=== PATIENT | male | born 1945 | race Asian ===

== ENCOUNTER 2017-03-11 07:28 | Day surgery (SDC) | payer OTHER ==
[2017-03-10 09:39] LABS: PLATELET COUNT 345 K/uL (142-355)
== END 2017-03-11 11:05 | disposition home or self-care (01) ==
LOC: OR 07:28
PROVIDERS: Student in an Organized Health Care Education/Training Program
PROC: 0DJD8ZZ Inspection of Lower Intestinal Tract, Via Natural or Artificial Opening Endoscopic (ICD-10-PCS; principal; 2017-03-11)
DX: K57.30 Diverticulosis of large intestine without perforation or abscess without bleeding (principal); K64.0 First degree hemorrhoids; Z12.11 Encounter for screening for malignant neoplasm of colon
CPT/HCPCS: 36415; 80053; 85027; J2001; J2250; J2704; J3010; J3490

== ENCOUNTER 2017-03-24 06:22 | Day surgery (SDC) | payer OTHER | END 2017-03-24 08:17 | disposition home or self-care (01) | LOC: OR 06:22 | PROC: 08RJ3JZ Replacement of Right Lens with Synthetic Substitute, Percutaneous Approach (ICD-10-PCS; principal; 2017-03-24) | DX: H25.811 Combined forms of age-related cataract, right eye (principal) | CPT/HCPCS: 66984; J0171; V2632 ==

== ENCOUNTER 2019-08-02 13:02 | Emergency (ER) | payer OTHER ==
[~2019-08-02] VITALS: Ht 170.2 cm; Wt 93.0 kg
[2019-08-02 13:08] VITALS: BP 176/103; TEMP 98.4
== END 2019-08-02 13:34 | disposition home or self-care (01) ==
LOC: ED 13:02
DX: Z03.818 Encounter for observation for suspected exposure to other biological agents ruled out (principal)
CPT/HCPCS: 87635; 99282; U0002

== ENCOUNTER 2020-08-11 10:11 | Outpatient (CLI) | payer OTHER ==
[2020-08-11 10:37] LABS: PLATELET COUNT 319 K/uL (142-355)
[2020-08-11 11:14] LABS: POTASSIUM 4.3 mmol/L (3.6-5.2)
== END 2020-08-11 19:07 | disposition home or self-care (01) ==
LOC: LABW 10:11
PROVIDERS: ATTEND Internal Medicine
DX: N18.32 Chronic kidney disease, stage 3b (principal); Z79.899 Other long term (current) drug therapy
CPT/HCPCS: 36415; 80053; 81000; 82043; 82330; 82570; 83036; 83735; 83970; 84100; 84155; 84439; 84443; 85027

== ENCOUNTER 2021-02-07 10:59 | Outpatient (CLI) | payer OTHER ==
[2021-02-07 11:45] LABS: PLATELET COUNT 327 K/uL (142-355)
[2021-02-07 12:04] LABS: POTASSIUM 4.3 mmol/L (3.6-5.2)
== END 2021-02-07 20:25 | disposition home or self-care (01) ==
LOC: LABW 10:59
PROVIDERS: ATTEND Internal Medicine
DX: N18.32 Chronic kidney disease, stage 3b (principal); Z79.899 Other long term (current) drug therapy
CPT/HCPCS: 36415; 80053; 81000; 82043; 82330; 82570; 83036; 83735; 83970; 84100; 84155; 84439; 84443; 85027

== ENCOUNTER 2021-08-31 09:30 | Outpatient (CLI) | payer OTHER ==
[2021-08-31 10:09] LABS: PLATELET COUNT 292 K/uL (142-355)
[2021-08-31 10:33] LABS: POTASSIUM 4.2 mmol/L (3.6-5.2)
== END 2021-08-31 21:16 | disposition home or self-care (01) ==
LOC: LABW 09:30
PROVIDERS: ATTEND Internal Medicine
DX: N18.32 Chronic kidney disease, stage 3b (principal); Z79.899 Other long term (current) drug therapy
CPT/HCPCS: 36415; 80053; 81002; 82043; 82330; 82570; 83036; 83735; 83970; 84100; 84156; 84439; 84443; 85027

== ENCOUNTER 2022-03-14 10:02 | Outpatient (CLI) | payer OTHER ==
[2022-03-14 10:48] LABS: PLATELET COUNT 309 K/uL (142-355)
== END 2022-03-14 18:59 | disposition home or self-care (01) ==
LOC: LABW 10:02
PROVIDERS: ATTEND Internal Medicine
DX: N18.32 Chronic kidney disease, stage 3b (principal); R73.03 Prediabetes
CPT/HCPCS: 36415; 81002; 82043; 82306; 82330; 82570; 83036; 83735; 83970; 84100; 84156; 84439; 84443; 85027

== ENCOUNTER 2022-05-03 19:13 | Emergency (ER) | payer OTHER ==
[~2022-05-03] VITALS: Ht 170.2 cm; Wt 90.7 kg
[2022-05-03 19:40] VITALS: TEMP 98.7
[2022-05-03 20:09] LABS: PLATELET COUNT 316 K/uL (142-355)
[2022-05-03 20:24] LABS: POTASSIUM 4.3 mmol/L (3.6-5.2)
[2022-05-03 20:33] LABS: PARTIAL THROMBOPLASTIN TIME 25.1 SECONDS (24.5-33.6)
[2022-05-03 21:53] VITALS: BP 143/86
== END 2022-05-03 21:53 | disposition home or self-care (01) ==
LOC: ED 19:13
PROVIDERS: Family Medicine
DX: I16.0 Hypertensive urgency (principal); N18.32 Chronic kidney disease, stage 3b; E11.9 Type 2 diabetes mellitus without complications
CPT/HCPCS: 80053; 82550; 84484; 85027; 85610; 85730; 93005; 99284

== ENCOUNTER 2022-07-21 03:02 | Emergency (ER) | payer OTHER ==
[~2022-07-21] VITALS: Ht 170.2 cm; Wt 89.4 kg
[2022-07-21 03:10] VITALS: TEMP 97.8
[2022-07-21 04:11] LABS: PLATELET COUNT 283 K/uL (142-355)
[2022-07-21 04:15] LABS: POTASSIUM 4.2 mmol/L (3.6-5.2)
[2022-07-21 04:17] LABS: PARTIAL THROMBOPLASTIN TIME 27.7 SECONDS (23.9-36.7)
[2022-07-21 05:40] VITALS: BP 155/95
== END 2022-07-21 05:40 | disposition home or self-care (01) ==
LOC: ED 03:02
PROVIDERS: Family Medicine
DX: R00.2 Palpitations (principal); I10 Essential (primary) hypertension; E11.9 Type 2 diabetes mellitus without complications; N18.31 Chronic kidney disease, stage 3a; Z91.148 Patient's other noncompliance with medication regimen for other reason; I49.9 Cardiac arrhythmia, unspecified
CPT/HCPCS: 36415; 80053; 81002; 82550; 84484; 85027; 85610; 85730; 93005; 99283

== ENCOUNTER 2022-10-05 07:22 | Emergency (ER) | payer OTHER ==
[~2022-10-05] VITALS: Ht 170.2 cm; Wt 88.0 kg
[2022-10-05 07:34] VITALS: TEMP 98
[2022-10-05 08:22] LABS: PLATELET COUNT 267 K/uL (142-355)
[2022-10-05 08:26] LABS: POTASSIUM 3.9 mmol/L (3.6-5.2)
[2022-10-05 10:28] VITALS: BP 131/86
== END 2022-10-05 10:28 | disposition home or self-care (01) ==
LOC: ED 07:22
PROVIDERS: Family Medicine
DX: N40.0 Benign prostatic hyperplasia without lower urinary tract symptoms (principal); R30.0 Dysuria
CPT/HCPCS: 80053; 81000; 85027; 99283